=== PATIENT | female | born 1995 | race Caucasian/White ===

== ENCOUNTER 2022-03-06 13:04 | Emergency (ER) | payer SELFPAY ==
[~2022-03-06] VITALS: Ht 170.2 cm; Wt 70.0 kg
[2022-03-06 13:23] VITALS: BP 111/79
[2022-03-06 14:32] LABS: CLARITY URINE CLEAR (CLEAR); COLOR URINE YELLOW (YELLOW); KETONES URINE 3+ (NEGATIVE); LEUKOCYTE ESTERASE URINE NEGATIVE (NEGATIVE); NITRITE URINE NEGATIVE (NEGATIVE); OCCULT BLOOD URINE NEGATIVE (NEGATIVE); PH URINE 5.5 (4.5-8.0); PROTEIN URINE TRACE (NEGATIVE); SPECIFIC GRAVITY URINE 1.034 (1.005-1.030)
== END 2022-03-06 16:15 | disposition home or self-care (01) ==
LOC: ER 13:04
DX: R68.89 Other general symptoms and signs (principal)
CPT/HCPCS: 36415; 81003; 81025; 84702; 99283